=== PATIENT | male | born 1935 | race Asian ===

== ENCOUNTER 2021-08-13 12:00 | Emergency (ER) | payer OTHER ==
[~2021-08-13] VITALS: Ht 165.1 cm; Wt 59.0 kg
[2021-08-13 15:11] LABS: Basophils # (auto) 0.1 10 ^3/uL (0-0.2); Basophils % (auto) 1.8 % (0.0-2.0); Eosinophils # (auto) 0.1 10 ^3/uL (0-0.8); Eosinophils % (auto) 2.6 % (0.0-7.0); Hematocrit 26.1 % (41.0-53.0); Hemoglobin 8.6 g/dL (13.5-17.5); Lymphocytes # (auto) 1.1 10 ^3/uL (0.4-5.4); Lymphocytes % (auto) 28.5 % (10.0-50.0); Mean Corpuscular Hemoglobin 30.8 pg (28.0-32.0); Mean Corpuscular Volume 93.1 fL (80.0-100.0); Monocytes # (auto) 0.3 10 ^3/uL (0-1.3); Monocytes % (auto) 6.9 % (0.0-12.0); Neutrophils # (auto) 2.4 10 ^3/uL (1.6-8.6); Neutrophils % (auto) 60.2 % (37.0-80.0); Nucleated Red Blood Cells % 0.1 %; Red Blood Cells 2.81 10^6/uL (4.5-5.90)
[2021-08-13 15:25] LABS: Red Cell Distribution Width 25.5 % (11.8-14.3)
[2021-08-13 15:26] LABS: Calcium 8.7 mg/dL (8.5-10.1); Potassium 4.1 mmol/L (3.5-5.1)
[2021-08-13 15:29] LABS: BUN/Creatinine Ratio 19.2; Bilirubin, Total 0.3 mg/dL (0.2-1.0); Total Protein 7.1 g/dL (6.4-8.2)
[2021-08-13 19:02] VITALS: BP 127/68
== END 2021-08-13 19:22 | disposition home or self-care (01) ==
LOC: ER 12:00
DX: R07.89 Other chest pain (principal); I25.10 Atherosclerotic heart disease of native coronary artery without angina pectoris; I10 Essential (primary) hypertension; I25.2 Old myocardial infarction; E11.9 Type 2 diabetes mellitus without complications; E78.5 Hyperlipidemia, unspecified; F17.210 Nicotine dependence, cigarettes, uncomplicated; Z86.73 Personal history of transient ischemic attack (TIA), and cerebral infarction without residual deficits; Z88.0 Allergy status to penicillin
CPT/HCPCS: 36415; 71046; 80053; 84484; 85025; 93005

== ENCOUNTER 2021-09-08 07:16 | Day surgery (SDC) | payer OTHER ==
[2021-09-08] VITALS (7 sets, daily range): BP systolic 130–153; BP diastolic 50–61
[~2021-09-08] VITALS: Ht 165.1 cm; Wt 61.2 kg
[~2021-09-08 07:16] MED LIST: ATOR20TA50 PO; CLOP75TA70 PO; ISOS1TAB37 PO; METF-370 PO; NITR0.4S29 SL
[2021-09-08] MEDS ORDERED: IODIXANOL 320MG/ML 100ML BTL IV ONE (07:58)
[2021-09-08] MEDS ORDERED: LIDOCAINE 2%HCL (LOCAL ANESTH.) INJ 20ML MDV ONE (07:58)
[2021-09-08] MEDS ORDERED: HEPARIN IN NS 1000Units/500mL 1,500 ML ONE (07:59)
[2021-09-08] MEDS ORDERED: ANGIOMAX 250 MG VIAL IV ONE (09:23)
[2021-09-08] MEDS ORDERED: MIDAZOLAM HCL 2MG/2ML 2ml VIAL (1mg/ml) ONE (09:24)
[2021-09-08] MEDS ORDERED: fentaNYL CITRATE 100 MCG/2 ML VL ONE (09:24)
[2021-09-08] MEDS ORDERED: SODIUM CHL 0.9% 0 ML ONE (09:24)
[2021-09-08] MEDS ORDERED: VERAPAMIL 2.5MG/ML INJ 2ML VIAL IV ONE (09:29)
[2021-09-08] MEDS ORDERED: HEPARIN 1,000 UNITS/ml 1ML VIAL ONE (09:30)
[2021-09-08] MEDS ORDERED: NITROGLYCERIN 5MG/ML 10ML VIAL IV ONE (09:31)
[2021-09-08] MEDS ORDERED: SODIUM CHL 0.9% 50 ML ONE (09:32)
[2021-09-08] MEDS ORDERED: HEPARIN SODIUM (PORCINE) 5000 UNITS/ML 1ML VIAL ONE (10:08)
== END 2021-09-08 12:40 | disposition home or self-care (01) ==
LOC: CATH 07:16
PROVIDERS: ATTEND Internal Medicine
DX: R94.39 Abnormal result of other cardiovascular function study (principal); I25.10 Atherosclerotic heart disease of native coronary artery without angina pectoris; I10 Essential (primary) hypertension; E78.5 Hyperlipidemia, unspecified; I25.2 Old myocardial infarction; E11.9 Type 2 diabetes mellitus without complications; Z88.2 Allergy status to sulfonamides; Z95.5 Presence of coronary angioplasty implant and graft; Z87.891 Personal history of nicotine dependence; Z98.890 Other specified postprocedural states; Z79.899 Other long term (current) drug therapy; Z79.84 Long term (current) use of oral hypoglycemic drugs; Z20.822 Contact with and (suspected) exposure to COVID-19
CPT/HCPCS: 93458; C1769; C1887; C1894; J1644; J2250; J3010; J3490; J7030; Q9967; U0003; 93005; 99152; 99153

== ENCOUNTER 2023-02-25 14:15 | Inpatient (IN) | payer OTHER ==
[~2023-02-25] VITALS: Ht 162.6 cm; Wt 57.0 kg
[2023-02-25] MEDS ORDERED: MORPHINE SULFATE INJ 2 MG/ml SYRG IV PRN ×2 (15:45)
[2023-02-25] MEDS ORDERED: NITROGLYCERIN 0.4 MG SL TAB SL PRN (15:45)
[2023-02-25] MEDS ORDERED: ACETAMINOPHEN 325 MG TAB PO PRN (15:45)
[2023-02-25] MEDS ORDERED: HYDROcodone-ACET 5/325MG TAB PO PRN (15:45)
[2023-02-25] MEDS ORDERED: ONDANSETRON HCL 4 MG/2 ML VIAL IV PRN (15:45)
[2023-02-25 19:32] VITALS: BP_SYST 134; BP_DIAS 75; BP_DIAS 77
[2023-02-25] MEDS: SODIUM CHLORIDE 0.9% 1,000 ML IV SCH (20:00)
[2023-02-25 20:02] VITALS: BP_SYST 134; BP_DIAS 75; BP_DIAS 77
[2023-02-25 22:00] VITALS: BP 142/69
[2023-02-25] MEDS ORDERED: ISO60SRT PO (22:14)
[2023-02-25] MEDS ORDERED: METO25TA93 PO (22:14)
[2023-02-25] MEDS ORDERED: RANO10003 PO (22:14)
[2023-02-25] MEDS ORDERED: ASPI1TAB20 PO (22:14)
[2023-02-26 05:00] VITALS: BP 138/68
[2023-02-26 05:02] LABS: Hematocrit 21.9 % (41.0-53.0)
[2023-02-26 05:04] LABS: Hemoglobin 7.5 g/dL (13.5-17.5); Mean Corpuscular Hemoglobin 35.5 pg (28.0-32.0); Mean Corpuscular Hgb Conc. 34.4 g/dL (32.0-36.0); Mean Corpuscular Volume 103.1 fL (80.0-100.0); Red Blood Cells 2.12 10^6/uL (4.5-5.90)
[2023-02-26 05:20] LABS: Red Cell Distribution Width 22.1 % (11.8-14.3); White Blood Cell 1.2 10^3/uL (4.4-10.8)
[2023-02-26 05:22] LABS: Band Neutrophils % (manual) 0; Basophils % (manual) 0 (0.0-2.0); Blast Cells 0; Metamyelocytes % 0; Myelocytes % 0; Promyelocytes % 0; Reactive Lymphocytes 0
[2023-02-26 07:57] LABS: Eosinophils % (manual) 1 (0-7); Lymphocytes % (manual) 49 (10.0-50.0); Monocytes % (manual) 10 (0-12)
[2023-02-26 08:00] VITALS: BP 126/69
[2023-02-26] MEDS ORDERED: cefTRIAXone 1GM/50ML D5W 50 ML IV SCH (09:00)
[2023-02-26] MEDS: SODIUM CHLORIDE 0.9% 1,000 ML IV SCH (09:15)
[2023-02-26] MEDS ORDERED: AZITHROMYCIN 500MG/ 250ML 250 ML IV SCH (10:00)
== END 2023-02-26 11:30 | disposition left against medical advice (07) | DRG 812 ==
LOC: TELE-EAST 19:33
PROVIDERS: ADMIT Internal Medicine; ATTEND Internal Medicine
DX: D53.9 Nutritional anemia, unspecified (principal); D72.819 Decreased white blood cell count, unspecified; E78.5 Hyperlipidemia, unspecified; I10 Essential (primary) hypertension; I25.10 Atherosclerotic heart disease of native coronary artery without angina pectoris; F03.A0 Unspecified dementia, mild, without behavioral disturbance, psychotic disturbance, mood disturbance, and anxiety; Z53.29 Procedure and treatment not carried out because of patient's decision for other reasons
CPT/HCPCS: 36415; 85007; 85027; 87081; 97163; G0378; J0696